=== PATIENT | male | born 1990 | race Caucasian/White ===

== ENCOUNTER 2017-03-18 07:19 | Emergency (ER) | payer SELFPAY ==
--- NOTE | 2017-03-18 07:26 | ED Physician Documentation ---
General Adult - HISTORIAN Historian: patient - HPI Stated Complaint: sore throat and fever Chief Complaint: Fever Onset: days ago (2) Timing: still present Severity: mild Further Comments: yes (states yesterday before going in to work he had a sore throat and fever. He continues to feel headache, sore throat , fever and aches . He states he did take Ibuprofen and it did decrease his fever. He continues however to have a sore throat and headache) Last known Well Code/Unknown Code: Unknown - ROS CONST: fever EYES/ENT: none CVS/RESP: cough GI/: none NEURO/PSYCH: headache, dizziness - PAST HX Past History: none Other History: none Surgeries/Procedures: none Immunizations: UTD Allergies/Adverse Reactions: Allergies Allergy/AdvReac Type Severity Reaction Status Date / Time Sulfa (Sulfonamide Allergy Mild Verified 03/18/17 07:31 Antibiotics) [Sulfa(Sulfonamide Antibiotics)] Home Medications: Ambulatory Orders Medication Instructions Recorded NK [NK] 03/18/17 - SOCIAL HX Smoking History: cigarettes Alcohol Use: occasionally Drug Use: marijuana - FAMILY HX Family History: No - VITAL SIGNS Vital Signs: Vital Signs Temp Pulse Resp BP Pulse Ox 122/73 12/23/15 14:44 - REVIEWED ASSESSMENTS Nursing Assessment Reviewed: Yes Vitals Reviewed: Yes General Adult Physical Exam - PHYSICAL EXAM GENERAL APPEARANCE: no distress EENT: eye inspection normal, pharyngeal erythema, TM erythema (bilateral ) NECK: normal inspection RESPIRATORY: no resp distress, chest non-tender, wheezes CVS: reg rate & rhythm, heart sounds normal, no murmur ABDOMEN: soft, normal bowel sounds, no distension, non-tender SKIN: warm/dry, normal color EXTREMITIES: non-tender, normal range of motion, no evidence of injury, no edema NEURO: oriented X3, CN's nml as tested, motor nml Discharge Clincal Impression: Strep pharyngitis Referrals: Primary Doctor,No [Primary Care Provider] - 2 Days Comments: Warm Salt water gargles Ibuprofen or Tylenol for fever or headache Amoxicillin 875 mg BID X 10 days rest increase fluids Return to PCP or ER if any concerns Condition: Stable Disposition: 01 HOME, SELF-CARE Decision to Admit: NO Date of Decison to Admit: 03/18/17 Decision Time: 07:42
[2017-03-18 07:49] VITALS: BP 117/82
== END 2017-03-18 07:55 | disposition home or self-care (01) ==
LOC: ED 07:19
DX: J02.0 Streptococcal pharyngitis (principal)
CPT/HCPCS: 87880; 99282

== ENCOUNTER 2017-05-11 20:05 | Emergency (ER) | payer SELFPAY ==
--- NOTE | 2017-05-11 20:06 | ED Physician Documentation ---
General Adult - HISTORIAN Historian: patient - HPI Stated Complaint: cough and sore throat x 1 day Chief Complaint: Sore Throat Onset: days ago (1) Timing: still present Severity: mild Further Comments: yes (Pt has had strep exposure. No fever noted. he has had sore throat and cough (productive clear) no OTC meds for symptoms . No rash. No other complaints) - ROS CONST: denies: fever EYES/ENT: sore throat CVS/RESP: cough GI/: none MS/SKIN/LYMPH: denies: rash NEURO/PSYCH: denies: headache - PAST HX Past History: none Other History: none Surgeries/Procedures: none Immunizations: UTD Allergies/Adverse Reactions: Allergies Allergy/AdvReac Type Severity Reaction Status Date / Time Sulfa (Sulfonamide Allergy Mild Verified 03/18/17 07:31 Antibiotics) [Sulfa(Sulfonamide Antibiotics)] Home Medications: Ambulatory Orders Medication Instructions Recorded NK [NK] 03/18/17 - SOCIAL HX Smoking History: cigarettes Alcohol Use: none Drug Use: none - FAMILY HX Family History: No - VITAL SIGNS Vital Signs: Vital Signs Temp Pulse Resp BP Pulse Ox 117/82 03/18/17 07:55 - REVIEWED ASSESSMENTS Nursing Assessment Reviewed: Yes Vitals Reviewed: Yes General Adult Physical Exam - PHYSICAL EXAM GENERAL APPEARANCE: no distress EENT: FARHA[place], TM's nml, pharyngeal erythema RESPIRATORY: no resp distress, chest non-tender, breath sounds normal CVS: reg rate & rhythm, heart sounds normal ABDOMEN: soft, normal bowel sounds SKIN: warm/dry, normal color EXTREMITIES: non-tender, normal range of motion, no edema NEURO: oriented X3, CN's nml as tested, motor nml Discharge Clincal Impression: Strep pharyngitis Referrals: Primary Doctor,No [Primary Care Provider] - 2 Days Additional Instructions: 1. Amoxicillin 500 mg TID X 10 days 2. Warm salt water gargles 3. Increase fluids 4. tylenol or Ibuprofen OTC for pain or fever 5. See PCP for follow up in 2-4 days if no improvement 6. Return to ER for any concerns Condition: Stable Disposition: 01 HOME, SELF-CARE Decision to Admit: NO Date of Decison to Admit: 05/11/17 Decision Time: 20:39
[2017-05-11 20:38] VITALS: BP 115/74
== END 2017-05-11 20:35 | disposition home or self-care (01) ==
LOC: ED 20:05
DX: J02.0 Streptococcal pharyngitis (principal)
CPT/HCPCS: 87070; 87880; 99283